=== PATIENT | female | born 1975 | race Caucasian/White ===

== ENCOUNTER 2021-09-26 09:27 | Outpatient (RCR) | payer BC, SELFPAY ==
--- NOTE | 2021-09-26 09:00 | BH.SGPN.GN ---
Behaviors/Verbalizations/Mental Status: [] Eye contact is good. Motor activity is appropriate. Appearance is casual. Speech is Appropriate. Mood is euthymic. Affect is congruent. Thoughts are linear and logical. No evidence of psychosis. Reviewed daily check in sheet and no reports of suicidal ideations or intent. Client Response/Progress/Benefit: [] Pt was an active participant in group discussion. Active participant. Provided appropriate feedback. Pt's first day in IOP. Pt reported she is seeking treatment because she realized she can no longer try to function on her own. Pt stated she has PTSD, Bipolar Disorder, Borderline Personality Disorder and Anxiety. Pt reported she has struggled with mental health problems all my life. Pt stated she has an individual counselor but recently recognized she needs something more intensive or things will only get worse. Pt noted mental health wins as getting to IOP today despite being nervous and making it through holiday dinner yesterday. Benefited from group support, encouragement, and feedback. Will continue in IOP to prevent decompensation, stabilize mood, and increase health coping.
--- NOTE | 2021-09-26 10:15 | BH.SGPN.GN ---
Behaviors/Verbalizations/Mental Status: []Pt alert and oriented, neatly dressed and groomed. Eye contact good. Motor activity appropriate. Speech within normal limits. Affect constricted, mood euthymic. Thoughts linear, logical, no signs of hallucinations or delusions. Client Response/Progress/Benefit: []Pt responded well to session AEB sharing and listening attentively to others. Group discussed the benefits of managed anger and anger as a secondary emotion. Pt completed anger iceberg worksheet, reporting outward personal signs of anger as screaming and yelling, shutting down, and intentionally trying to hurt others. Identified underlying emotions that contribute to anger including shame, guilt, and regret. Appeared to benefit from increased knowledge of the underlying emotions that impact anger and increased self-awareness of the internal and external consequences of anger. First day of IOP tx. Will continue IOP tx to prevent decompensation, improve overall functioning, and increase insight to warning signs and triggers. Narrative Note: []
--- NOTE | 2021-09-26 11:15 | BH.SGPN.GN ---
Behaviors/Verbalizations/Mental Status: []Client alert and oriented, casually dressed and groomed. Eye contact good. Motor activity appropriate. Speech within normal limits. Affect congruent, mood depressed, anxious. Thoughts linear, logical, no signs of hallucinations or delusions. Client Response/Progress/Benefit: []Pt first day in IOP tx. She was engaged throughout AEB participating in discussion and taking notes. Pt reported connecting with psychoeducation portion reviewing importance of identifying physical warning signs for anger. Contributed as group brainstormed healthy coping skills for better managing anger which included: deep breathing, journaling, focusing on what?s in their control in the moment, exercise, communicating with supports when calm, and self-reflection. Pt appeared to benefit from identifying different techniques to manage anger as well as gaining awareness of the costs of anger. Pt reported that when anger is unmanaged, her chest gets heavy and she begins to feel really restless. Pt selected practicing self-reflection as a strategy she is willing to try to better manage her anger. Will continue IOP tx to prevent decompensation, and improve mood stability, and promote use of healthy coping skills. Narrative Note: []
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
--- NOTE | 2021-09-28 10:05 | BH.SGPN.GN ---
Behaviors/Verbalizations/Mental Status: []Client alert and oriented, casually dressed and groomed. Eye contact good. Motor activity appropriate. Speech within normal limits. Affect congruent, mood euthymic. Thoughts linear, logical, no signs of hallucinations or delusions. Client Response/Progress/Benefit: []Client responded well to session AEB sharing and listening attentively to others. Client participated in group discussion identifying common characteristics of ineffective communication and the benefits of effective communication, stating that it improves relationships and mental health. Client participated in group activity identifying communication styles, including passive, aggressive, passive aggressive, and assertive. Client listened attentively throughout group members identifying and providing examples of what each type of communication looks like in practice. Client appeared to benefit from increased knowledge of communication styles and the benefits of healthy communication. Will continue IOP treatment to increase application of healthy coping skills and prevent decompensation to improve daily functioning. Narrative Note: []
[2021-09-28 10:57] VITALS: BP 120/71; PULSE 66
--- NOTE | 2021-09-28 11:10 | BH.SGPN.GN ---
Behaviors/Verbalizations/Mental Status: []Client alert and oriented, casually dressed and appropriately groomed. Eye contact good. Motor activity appropriate. Speech WNL. Affect constricted, mood dysthymic. Thoughts linear, logical, no signs of hallucinations or delusions. Client Response/Progress/Benefit: []Client responded well to session AEB client listening attentively to others and providing input during group discussion on the pay offs and costs of the different communication styles. Client stated in the past she used mostly aggressive communication which negatively impacted relationships. Client reported she recently has been using passive communication, but this negatively impacts mental health because she holds in thoughts/feelings. Attentive during psychoeducation on interpersonal DBT skill LATIA. Client seemed to benefit from increasing awareness of healthy strategies to improve communication. Client will continue IOP to increase healthy coping, challenge negative thinking and prevent decompensation.
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
--- NOTE | 2021-09-28 13:00 | BH.DR.ITP ---
Initial Treatment Plan Patient Information Visit Information: ADMISSION DATE: EXPECTED LOS: 4-6 weeks Problems/Symptoms Problem #1:: Depression Symptom:: Sadness, worthlessness, hopelessness, anhedonia, low energy, decreased concentration, guilt, passive suicidal ideation, passive thoughts of Problem #2:: Anxiety Symptom:: Worry, rumination, panic attacks, avoidance, nightmares, flashbacks
--- NOTE | 2021-10-07 15:50 | BH.DS ---
Discharge Summary - Demographics Date of Admission:: 09/26/21 Discharge Date: 10/07/21 Presenting Problems at Admission:: Pt is a 46 year old female with hx of PTSD, Bipolar, and Borderline PD. Previous psychiatric admission to [facility] ([place] over 20 years ago. Referred to IOP due to worsening depression and anxiety for the past year. Limited benefit from traditional outpatient. Over the past year mental health symptoms interfering with daily functioning. Pt reports being unable to maintain employment due to inability to concentrate and complete work responsibilities. Currently isolating and avoiding family events and is struggling to complete ADLs. Endorses poor sleep, nightmares, erratic appetite, low energy, poor motivation, isolation, anhedonia, and worthlessness. Denies active suicidal ideations, plan, or intent. Hx of previous suicide attempt at age 12. Reports survival ambivalence and thoughts of stating tired of living like this. Reports hypomanic episodes twice monthly which can last several days (impulsive, risky behaviors, high energy). Upon admission was in a depressive episode. Panic attacks 3x weekly. Hx of trauma. Family hx of numerous psych admits. Endorses ruminations and racing thoughts. Denies HI or psychosis. Denies substance abuse. Lives with . Due to mental health impacting functioning, frequent panic attacks, and limited benefit from traditional outpatient recommended IOP level of care. Discharge Diagnoses:: 1. Bipolar 2 disorder, (depression currently) F31.81. 2. Panic disorder. 3. PTSD. 4. History of diagnosis of borderline personality disorder Reason for Discharge:: Pt participated in 2 full days of IOP her first week and then cancelled the entire following week. Spoke with patient today and she reports struggle with finding the time to complete IOP at this moment in her life. She mentioned obstacles keeping her from attending include; taking her mother to dialysis and pt's physical therapy. - Treatment Progress During Treatment & Response: No progress noted as she only attended 2 IOP sessions. Was engaged and appeared attentive during group sessions when present. Never met with individual counselor to complete master treatment plan or psychosocial. Issues Still to be Addressed:: depression, anxiety, panic attacks, erratic mood, MH impacting functioning, and implementing healthy coping skills. Discharge Recommendations/Instructions:: Recommended to follow up with [facility] for medication management with Zuly Apple and counseling with Mica Ponce. Discharge Handout: Complete Discharge Handout with client on aftercare options and continuity of care.
== END 2021-10-08 23:59 | disposition home or self-care (01) ==
LOC: BHIOP 09:27
PROVIDERS: PCP Family Medicine; Referring Provider Psychiatry & Neurology Psychiatry; Visit Provider Psychiatry & Neurology Psychiatry
DX: F31.81 Bipolar II disorder (principal); F41.0 Panic disorder [episodic paroxysmal anxiety]; F43.10 Post-traumatic stress disorder, unspecified; F60.3 Borderline personality disorder; G89.29 Other chronic pain; M54.9 Dorsalgia, unspecified; Z98.84 Bariatric surgery status; Z91.410 Personal history of adult physical and sexual abuse; Z62.810 Personal history of physical and sexual abuse in childhood; Z91.51 Personal history of suicidal behavior; K74.60 Unspecified cirrhosis of liver
CPT/HCPCS: S9480; 90853